=== PATIENT | male | born 1955 | race Caucasian/White ===

== ENCOUNTER 2018-01-18 12:00 | Emergency (ER) | payer MEDICAID ==
[~2018-01-18] VITALS: Ht 177.8 cm; Wt 95.5 kg
[2018-01-18 12:20] VITALS: Ht 177.8 cm; Wt 95.5 kg
[2018-01-18] MEDS ORDERED: ZANTAC300 MG PO (12:21)
[2018-01-18 13:32] LABS: ALBUMIN 3.4 g/dL (3.4-5.0); ALKALINE PHOSPHATASE 91 U/L (46-116); ALT (SGPT) 41 U/L (10-68); CALC OSMOLALITY 278 mosm/kg (275-300); CALCIUM 8.8 mg/dL (8.5-10.1); CARBON DIOXIDE 28.3 mmol/L (21.0-32.0); CHLORIDE - SERUM 105 mmol/L (98-107); CREATININE - SERUM 0.8 mg/dL (0.6-1.3); GLUCOSE 122 mg/dL (74-106); POTASSIUM - SERUM 3.5 mmol/L (3.5-5.1); SODIUM 140 mmol/L (136-145); UREA NITROGEN 11 mg/dL (7-18); eGFR NON AFRICAN AMERICAN > 90 mL/min (90-120)
[2018-01-18 13:36] LABS: BASOPHILS 0.2 % (0-2); HEMATOCRIT 45.2 % (42.0-54.0); HEMOGLOBIN 15.5 g/dL (13.5-17.5); IMMATURE GRANULOCYTES 0.5 % (0-5); LYMPHOCYTES 27.2 % (15-50); MCH 31.3 pg (26.0-34.0); MCHC 34.3 g/dL (31.0-37.0); MCV 91.3 fL (80.0-100.0); MEAN PLATELET VOLUME 11.9 fL (7.4-10.4); MONOCYTES 9.8 % (2-11); NEUTROPHILS 60.3 % (40-80); PLATELET COUNT 203 10x3/uL (130-400); RBC 4.95 10x6/uL (4.20-6.10); WBC 11.8 10x3/uL (4.8-10.8)
[2018-01-18] MEDS ORDERED: AUGMENTIN 875-11 TAB PO (14:51)
[2018-01-18] MEDS ORDERED: CLARITIN 10 MG10 MG PO (14:51)
[2018-01-18 15:05] VITALS: BP 117/69
== END 2018-01-18 15:06 | disposition home or self-care (01) ==
LOC: D.ER 12:00
PROVIDERS: Family Medicine
DX: J01.90 Acute sinusitis, unspecified (principal); R09.89 Other specified symptoms and signs involving the circulatory and respiratory systems; F17.200 Nicotine dependence, unspecified, uncomplicated